=== PATIENT | female | born 1995 | race Caucasian/White ===

== ENCOUNTER 2018-07-04 23:19 | Emergency (ER) | payer OTHER ==
[~2018-07-04] VITALS: Ht 170.2 cm; Wt 97.5 kg
[2018-07-04 23:24] VITALS: BP 146/81
--- NOTE | 2018-07-04 23:28 | NUR ---
TO BED # 2 AMBULATORY, REPORT GIVEN TO JUSTINO VILLAR
--- NOTE | 2018-07-04 23:39 | NUR ---
PT BIB [facility] C/O ANXIETY, BODYACHES, SOB, SEVERE HEADACHES, NAUSEA STARTED TODAY. SKIN IS INTACT, PINK/WARM/DRY; AAOX4, PERRL, WITH EVEN AND STEADY GAIT; LUNGS CLEAR BL, BREATHING UNLABORED; HR EVEN AND REGULAR, BL PERIPHERAL PULSES PRESENT; BS ACTIVE X4, NO TENDERNESS TO PALPATION, NO HEPATOSPLENOMEGALLY PALPATED, RESONANT TO PERCUSSION; PT DENIES ANY FEVER, COUGH AT THIS TIME; PT STATES 5/10 PAIN AT THIS TIME; VSS; PATIENT POSITIONED FOR COMFORT; HOB ELEVATED; BEDRAILS UP X2; BED DOWN.
[2018-07-05] MEDS ORDERED: LORazepam 1 MG TAB PO ONE (00:20)
[2018-07-05] MEDS ORDERED: ACETAMINOPHEN EXTRA STRENGTH 500 MG TAB PO ONE (00:20)
--- NOTE | 2018-07-05 00:35 | NUR ---
PT VITALS STABLE, FAMILY AT BEDSIDE
--- NOTE | 2018-07-05 00:36 | NUR ---
EKG PERFORMED AT BEDSIDE WITH PT COVERED IN GOWN AND PERSONAL CLOTHES, FAMILY MEMBER PRESENT IN ROOM
[2018-07-05 00:57] LABS: HEMATOCRIT 37.3 % (36-48); MEAN CORPUSCULAR HEMOGLOBIN 25 pg (27-31); MEAN CORPUSCULAR HGB CONC 32 g/dL (33-37); MEAN CORPUSCULAR VOLUME 76.4 fL (80-94); PLATELET COUNT (AUTO) 220 K/uL (140-450); RED BLOOD CELL COUNT(AUTO) 4.89 MIL/uL (4.20-5.40); RED CELL DISTRIBUTION WIDTH 15.2 % (11.6-13.7); WHITE BLOOD COUNT (AUTO) 14.1 K/uL (4.8-10.8)
[2018-07-05 01:21] LABS: BARBITURATE, URINE NEG. ng/ml (NEG <=200); BENZODIAZEPINE, URINE NEG. ng/mL (NEG <=200); CANNABINOID, URINE NEG. ng/mL (NEG <=50); COCAINE, URINE NEG. ng/mL (NEG <=300); OPIATE, URINE NEG. ng/mL (NEG <=2000); PHENCYCLIDINE SCREEN,URINE NEG. ng/mL (NEG <=25)
[2018-07-05 01:23] LABS: ANION GAP 14.1 (8-16); CARBON DIOXIDE 25.4 mmol/L (21-32); CREATININE 0.5 mg/dL (0.6-1.3); POTASSIUM 3.5 mmol/L (3.5-5.1)
[2018-07-05 01:32] LABS: LYMPHOCYTES % (MANUAL) 6 % (20-46); MONOCYTES % (MANUAL) 13 % (5-12)
[2018-07-05 01:37] LABS: ALBUMIN 3.8 g/dL (3.4-5.0); THYROID STIMULATING HORMONE 2.3 uIU/mL (0.34-3.74); TOTAL BILIRUBIN 0.5 mg/dL (0.0-1.0)
[2018-07-05] MEDS ORDERED: KETOROLAC 15 MG/ML VIAL IVP ONE (01:40)
[2018-07-05] MEDS ORDERED: KETOROLAC 30 MG/ML VIAL IM ONE (01:50)
[2018-07-05 01:52] LABS: BILIRUBIN,URINE NEGATIVE (NEGATIVE); BLOOD, URINE MODERATE (NEGATIVE); LEUKOCYTE ESTERASE ,URINE SMALL (NEGATIVE); NITRITE, URINE NEGATIVE (NEGATIVE); UGLUCOSE NEGATIVE (NEGATIVE)
[2018-07-05 01:54] LABS: APPEARANCE,URINE CLOUDY (CLEAR); COLOR,URINE YELLOW (YELLOW)
[2018-07-05 01:55] LABS: RBC,URINE 3-10 (FEW) /HPF (0-5)
[2018-07-05 02:10] VITALS: BP 146/81
--- NOTE | 2018-07-05 02:10 | NUR ---
Patient discharged with v/s stable. Written and verbal after care instructions given and explained. Patient alert, oriented and verbalized understanding of instructions. Ambulatory with steady gait. All questions addressed prior to discharge. ID band removed. Patient advised to follow up with PMD. Rx of ATIVAN was given. Patient educated on indication of medication including possible reaction and side effects. Opportunity to ask questions provided and answered.
== END 2018-07-05 02:10 | disposition home or self-care (01) ==
LOC: MED 23:19
DX: F41.0 Panic disorder [episodic paroxysmal anxiety] (principal); B34.9 Viral infection, unspecified; R94.31 Abnormal electrocardiogram [ECG] [EKG]; M54.9 Dorsalgia, unspecified; M25.561 Pain in right knee; M25.562 Pain in left knee; R06.4 Hyperventilation; R11.10 Vomiting, unspecified; R10.10 Upper abdominal pain, unspecified; M25.512 Pain in left shoulder; M25.511 Pain in right shoulder
CPT/HCPCS: 36415; 80053; 80305; 81001; 81025; 84443; 85025; 87086; 93005; 96372; 99285; J1885